=== PATIENT | female | born 1970 | race Caucasian/White ===

== ENCOUNTER 2018-11-12 09:11 | Emergency (ER) | payer SELFPAY, MEDICAID ==
[2018-11-12] MEDS: METHYLPREDNISOLONE 125 MG INJ IM (09:37)
[2018-11-12] MEDS: DIPHENHYDRAMINE 25 MG CAP PO (09:37)
[2018-11-12] MEDS: FAMOTIDINE 20 MG TAB PO (09:37)
== END 2018-11-12 10:07 | disposition home or self-care (01) ==
LOC: FTE 09:11
DX: L50.0 Allergic urticaria (principal)
CPT/HCPCS: 81025; 96372; 99284-25